=== PATIENT | female | born 1960 | race Caucasian/White ===

== ENCOUNTER 2018-07-23 05:15 | Observation (INO) ==
[2018-07-23] MEDS ORDERED: REGLAN ONE (06:12)
[2018-07-23] MEDS ORDERED: LR 1,000 ML ONE ×4 (06:12→09:54)
[2018-07-23] MEDS ORDERED: PEPCID ONE (06:12)
[2018-07-23] MEDS ORDERED: SENSORCAINE-MPF 0.5%/EPI 1:200,000 ONE (06:27)
[2018-07-23] MEDS ORDERED: SODIUM CHLORIDE 0.9% ONE (06:27)
[2018-07-23] MEDS ORDERED: DIPRIVAN 1% ONE (06:30)
[2018-07-23] MEDS ORDERED: FENTANYL ONE ×2 (06:31→08:59)
[2018-07-23] MEDS ORDERED: VERSED ONE (06:31)
[2018-07-23] MEDS ORDERED: ZOFRAN ONE (06:41)
[2018-07-23] MEDS ORDERED: XYLOCAINE-MPF 2% ONE (06:41)
[2018-07-23] MEDS ORDERED: QUELICIN (DOSE) ONE (06:41)
[2018-07-23] MEDS ORDERED: ZEMURON ONE ×2 (06:41→08:20)
[2018-07-23] MEDS ORDERED: CLINDAMYCIN 900 MG/D5W 900 MG/50 ML IVPB ONE (07:04)
[2018-07-23] MEDS ORDERED: NEO-SYNEPHRINE ONE (07:38)
[2018-07-23] MEDS ORDERED: NEOSTIGMINE ONE (07:45)
[2018-07-23] MEDS ORDERED: ROBINUL ONE (07:45)
--- NOTE | 2018-07-23 09:20 | Diag Imaging Result Doc PS360 ---
EXAM: OPERATIVE CHOLANGIOGRAM HISTORY: GALLBLADDER DX TECHNIQUE: Intraoperative cholangiogram, single view COMPARISON: None. FINDINGS: Contrast fills the common bile duct and has emptied into the duodenum. No stone or stricture. IMPRESSION: Normal intraoperative cholangiogram. Electronically signed by Jefry Leong 07/23/2018 9:17 AM
[2018-07-23] MEDS ORDERED: DECADRON ONE (09:21)
[2018-07-23] MEDS: DEMEROL ONE ×3 (09:50→10:20)
[2018-07-23] MEDS: MORPHINE ONE ×2 (10:30→10:35)
[2018-07-23] MEDS ORDERED: PHENERGAN ONE (10:32)
[2018-07-23] MEDS: LR 1,000 ML IV SCH ×2 (11:00→18:17)
[2018-07-23] MEDS ORDERED: ZOFRAN IV PRN (11:10)
[2018-07-23] MEDS: MORPHINE IV PRN ×2 (16:19→19:47)
[2018-07-23] MEDS: PEPCID PO SCH (19:47)
[2018-07-23] MEDS: PERIDEX MT SCH (19:47)
[2018-07-24] MEDS: MORPHINE IV PRN (00:02)
--- NOTE | 2018-07-24 02:33 | OPERATIVE NOTE ---
PROCEDURE DATE: 07/23/2018 PREOPERATIVE DIAGNOSIS: Symptomatic cholelithiasis. POSTOPERATIVE DIAGNOSIS: Symptomatic cholelithiasis, with [id number] cholecystitis. PROCEDURE PERFORMED: Laparoscopic cholecystectomy, with cholangiogram. ESTIMATED BLOOD LOSS: 50 mL. SPECIMENS: Gallbladder. ANESTHESIA: General. [employer]: Dr. Parker was present to help identify the severely distorted anatomy, and dissection complicated by her acute inflammation. OPERATIVE FINDINGS: 1. There was a densely inflamed thickened gallbladder, with numerous stones, one of which was impacted in the neck of the gallbladder. Purulent bile, omental adhesions up to the gallbladder surface. 2. Interpretation of intraoperative cholangiogram showed rapid flow of contrast through a shortened cystic duct, into a nondilated common bile duct, and into the duodenum, with no filling defects. Retrograde flow in the common hepatic and intrahepatic radicals was normal. OPERATIVE NOTE: Risks, benefits, alternatives were discussed with the patient. She consented to the procedure. She was seen preoperatively. Surgical site was confirmed. She was taken to the operating room, placed in supine position. General anesthesia was induced without complication. All bony prominences were padded. Her abdomen was prepped with chlorhexidine solution and draped in the usual fashion. After a time-out, we made a supraumbilical midline incision, carried this down the fascia, and incised the fascia. The abdomen was entered in open controlled fashion. A 12 mm Alexandra trocar was placed under direct visualization. The abdomen was insufflated. She tolerated this. She was placed in reverse Trendelenburg, left side down. Three additional trocars 5 mm were placed along the costal margin. We meticulously exposed the gallbladder. It was very distended. It did not even allow initially our decompression needle to decompress it, given the thickened rind, but we were able to, using the corkscrew retractor, to retract it cephalad. We took down the omental adhesions, and began working inferiorly toward the infundibulum. This was significantly inflamed, where exposure was difficult. We placed another 11 mm trocar in the patient's right side of the abdomen, lateral to the umbilicus, and the fan retractor was used for exposure. We identified the duodenum throughout this, and protected it. Starting laterally, and progressing medially, we worked slowly dissecting down this inflammatory rind. We were able to encircle the gallbladder, approximately the midportion, and this helped our exposure and our dissection. We were able to enter a plane. We identified an impacted stone that was distorting this, and then the cystic duct was then readily identified, and the critical view was established. We confirmed this anatomy. There was a cystic artery that coursed along the gallbladder that we had to clip and divide, as well as a posterior vein branch in the gallbladder that we doubly clipped and divided during this exposure. The cystic duct was normal caliber, actually it was pretty small, given its chronic obstruction. After elevating the gallbladder, we were able to decompress it, and purulent bile was expressed. We placed a clip on the gallbladder side. A ductotomy was made, and a cholangiogram was performed. This correlated with our intraoperative anatomy. We were able to triply clip the cystic duct, ensuring we did not encroach upon the common bile duct, and we did this safely. We divided the cystic duct and removed the gallbladder from the gallbladder fossa. Very difficult, given the size of the gallbladder, but we did this without nicky rupture, and there was no spillage of stones. We placed it in an EndoCatch bag, and in fact the gallbladder did not even entirely fit in the EndoCatch bag. We copiously irrigated the abdomen and placed a [place] drain in the gallbladder fossa, secured it with a nylon suture. At this point, our remaining trocars were removed. We did note hemostasis in the gallbladder fossa. There was no bile leakage. We extended the fascial incision significantly to allow for removal of the gallbladder. We did this intact. The fascia was closed with 0 Vicryl at the retractor site, and then using a running 0 PDS suture, we closed the midline fascia. Skin was closed with 4-0 Monocryl in a subcuticular fashion. Dermabond was applied. Counts were correct. She was awakened, transferred to the recovery room. MARIBEL drain was serosanguineous. We will admit her for observation. I spoke with the family. cc: Martin Mary MD
[2018-07-24] MEDS: NORCO-7.5 PO PRN ×4 (03:40→15:34)
[2018-07-24] MEDS: PERIDEX MT SCH ×2 (03:47→09:52)
[2018-07-24] MEDS: PEPCID PO SCH ×2 (03:47→09:52)
[2018-07-24] MEDS: LR 1,000 ML IV SCH ×2 (03:47→14:22)
[2018-07-24 15:24] VITALS: BP 127/63
--- NOTE | 2018-07-25 08:44 | DISCHARGE SUMMARY ---
ADMISSION DATE: 07/23/2018 DISCHARGE DATE: 07/24/2018 ADMITTING DIAGNOSIS: Symptomatic cholelithiasis. POSTOPERATIVE DIAGNOSIS: Symptomatic cholelithiasis with acute cholecystitis. PROCEDURE PERFORMED: Laparoscopic cholecystectomy with cholangiogram. HISTORY OF PRESENT ILLNESS: This 58-year-old female has had long-standing upper GI complaints. Ultrasound shows gallstones. HOSPITAL COURSE: The patient was admitted for the above procedure. For details, please see dictated operative note. Postoperatively, she is admitted for resuscitation and observation. Her MARIBEL drain remained serosanguineous. Her vital signs were stable. Her glucoses were okay. She is able to tolerate a diet. Her pain is controlled with [place]. She is felt safe for discharge. DISPOSITION: Home with self-care. Discharge instructions were given in written and verbal format. She will see me on Saturday for drain removal. Discharge diet: We will gradually begin advancing her diet as tolerated, continue low-fat. cc: Martin Mary MD
== END 2018-07-24 16:59 | disposition home or self-care (01) ==
LOC: OR 05:15 → SURHOLD 05:15 → 4N 15:13
PROVIDERS: ADMIT Surgery; ATTEND Surgery
CPT/HCPCS: 74300; 82948; 88304; 94761; 94799; A9270; C1751; J0330; J1100; J2175; J2250; J2270; J2370; J2405; J2550; J3010; J7120; Q9966; Q9967; XXXXX